=== PATIENT | male | born 1975 | race American Indian/Alaskan Native ===

== ENCOUNTER 2017-05-12 16:51 | Emergency (ER) | payer SELFPAY ==
[2017-05-12 17:58] LABS: Basophils % (Auto) 0.3 % (0.0-1.8); Eosinophils % (Auto) 0.3 % (0.0-4.3); Hematocrit 39.9 % (35.5-45.6); Hemoglobin 12.8 gm/dl (11.8-15.2); Mean Corpuscular HGB Conc 32 % (32-34); Mean Corpuscular Hemoglobin 28 pg (28-32); Mean Corpuscular Volume 87 fl (84-94); Platelet Count 230 K/mm3 (140-440); Red Blood Count 4.61 M/mm3 (3.65-5.03); Red Cell Distribution Width 14.1 % (13.2-15.2)
[2017-05-12 18:03] LABS: Calcium 8.9 mg/dL (8.4-10.2); Potassium 4.8 mmol/L (3.6-5.0)
[2017-05-12] MEDS ORDERED: NACL 0.9% 1000 ML 1,000 ML IV ONE ×3 (18:54→22:24)
[2017-05-12 20:14] LABS: ISTAT Base Excess -8; ISTAT DEVICE 0; ISTAT HCO3 17.3; ISTAT PCO2 31.5 (35-45); ISTAT PH 7.348 (7.35-7.45); ISTAT PO2 76 (80-105); ISTAT SO2 95; ISTAT TCO2 18
[2017-05-12 20:32] LABS: Bilirubin,Urine NEG (Negative); Blood,Urine SM (Negative); Ketones,Urine 20 mg/dL (Negative); Leukocyte Esterase,Urine NEG (Negative); Mucus,Urine FEW /HPF; Nitrite,Urine NEG (Negative); Urobilinogen,Urine < 2.0 mg/dL (<2.0)
--- NOTE | 2017-05-12 21:49 | Emergency Department Report ---
- General Chief complaint: Hyperglycemia Stated complaint: FLU, HYPERGLYCEMIA Time Seen by Provider: 05/12/17 19:31 Source: patient Mode of arrival: Ambulatory Limitations: No Limitations - History of Present Illness Initial comments: Patient with progressive weakness with cough and congestion. Symptoms started Wednesday and Dx with flu today. Has DM type I. Can't keep anything down with vomiting. Glucose has been elevated. -: days(s) (5) Location: generalized Severity scale (0 -10): 6 Quality: aching Consistency: constant Improves with: none Worsens with: none Context: recent illness Associated Symptoms: denies other symptoms, fever/chills - Related Data Allergies Allergy/AdvReac Type Severity Reaction Status Date / Time No Known Allergies Allergy Unverified 05/12/17 17:24 ED Review of Systems ROS: Stated complaint: FLU, HYPERGLYCEMIA Other details as noted in HPI Constitutional: chills, fever Eyes: denies: eye pain, eye discharge, vision change ENT: denies: ear pain, throat pain Respiratory: cough. denies: shortness of breath, wheezing Cardiovascular: denies: chest pain, palpitations Endocrine: no symptoms reported Gastrointestinal: denies: abdominal pain, nausea, diarrhea Genitourinary: denies: urgency, dysuria Musculoskeletal: denies: back pain, joint swelling, arthralgia Skin: denies: rash, lesions Neurological: denies: headache, weakness, paresthesias Psychiatric: denies: anxiety, depression Hematological/Lymphatic: denies: easy bleeding, easy bruising ED Past Medical Hx - Past Medical History Previous Medical History?: Yes Hx Diabetes: Yes - Surgical History Past Surgical History?: No - Social History Smoking Status: Never Smoker Substance Use Type: None ED Physical Exam - General Limitations: No Limitations General appearance: alert, lethargic - Head Head exam: Present: atraumatic, normocephalic - Eye Eye exam: Present: normal appearance - ENT ENT exam: Present: mucous membranes moist - Neck Neck exam: Present: normal inspection - Respiratory Respiratory exam: Present: normal lung sounds bilaterally. Absent: respiratory distress - Cardiovascular Cardiovascular Exam: Present: normal rhythm, tachycardia. Absent: systolic murmur, diastolic murmur, rubs, gallop - GI/Abdominal GI/Abdominal exam: Present: soft, tenderness (mild generalized TTP. No peritonitis.), normal bowel sounds - Rectal Rectal exam: Present: deferred - Extremities Exam Extremities exam: Present: normal inspection - Back Exam Back exam: Present: normal inspection - Neurological Exam Neurological exam: Present: alert, oriented X3 - Psychiatric Psychiatric exam: Present: normal affect, normal mood - Skin Skin exam: Present: warm, dry, intact, normal color. Absent: rash ED Course Vital Signs 05/12/17 05/12/17 05/12/17 17:20 19:00 19:15 Temperature 99 F Pulse Rate 112 H 118 H 106 H Respiratory 26 H 19 35 H Rate Blood Pressure 140/85 134/80 138/75 O2 Sat by Pulse 98 98 95 Oximetry 05/12/17 05/12/17 05/12/17 19:30 19:45 20:00 Temperature Pulse Rate 106 H 112 H 106 H Respiratory 34 H 17 38 H Rate Blood Pressure 158/81 158/81 137/77 O2 Sat by Pulse 96 96 96 Oximetry 05/12/17 05/12/17 05/12/17 20:15 20:30 20:45 Temperature Pulse Rate 111 H 106 H 103 H Respiratory 23 22 34 H Rate Blood Pressure 137/77 143/75 143/75 O2 Sat by Pulse 98 98 96 Oximetry 05/12/17 21:00 Temperature Pulse Rate 107 H Respiratory 36 H Rate Blood Pressure 145/76 O2 Sat by Pulse 96 Oximetry ED Medical Decision Making - Lab Data Result diagrams: 05/12/17 17:31 05/12/17 17:31 Patient with normal lactic acid. Anion gap is 27. Ketones in urine. Glucose elevated. Renal function decreased. - EKG Data -: EKG Interpreted by Me - Medical Decision Making Patient with hyperglycemia and intractable vomiting with the flu A. Will admit for hydration, DM control and stabilization from the flu. D/W hospitalist. Critical care attestation.: If time is entered above; I have spent that time in minutes in the direct care of this critically ill patient, excluding procedure time. ED Disposition Clinical Impression: Influenza A, Hyperglycemia due to type 1 diabetes mellitus Intractable vomiting Qualifiers: Vomiting type: unspecified Nausea presence: with nausea Qualified Code(s): R11.2 - Nausea with vomiting, unspecified Disposition: OP ADMIT IP TO THIS HOSP Is pt being admited?: Yes Does the pt Need Aspirin: No Condition: Stable Instructions: Hyperosmolar Hyperglycemic State (ED) Time of Disposition: 21:51
[2017-05-12] MEDS ORDERED: ZOFRAN IV ONE (22:27)
[2017-05-12 23:00] VITALS: BP 116/55
[2017-05-12] MEDS ORDERED: TAMIFLU PO SCH (23:00)
[2017-05-12 23:27] LABS: Calcium 8.1 mg/dL (8.4-10.2); Chloride 94.9 mmol/L (98-107); Potassium 4.2 mmol/L (3.6-5.0)
--- NOTE | 2017-05-13 02:51 | History and Physical Report ---
History of Present Illness Chief complaint: High blood sugar History of present illness: 41 YO Male with DM presents to ED for evaluation. Pt states that he has been feeling weak. Pt seen and evaluated in ED and found to have elevated serum glucose. Pt treated with supportive care with normalization of serum glucose. Pt medically optimized and back to usual state of health. Pt discharged home and instructed to f/u pcp 1wk. Past History Past Medical History: diabetes Past Surgical History: No surgical history, Other (reviewed) Social history: single Family history: diabetes, hypertension Medications and Allergies Allergies Allergy/AdvReac Type Severity Reaction Status Date / Time No Known Allergies Allergy Unverified 05/12/17 17:24 Active Meds: Active Medications Oseltamivir Phosphate (Tamiflu) 75 mg PO BID CAROLIN Stop: 05/17/17 10:01 Last Admin: 05/12/17 23:35 Dose: 75 mg Review of Systems Constitutional: no weight loss, no weight gain Ears, nose, mouth and throat: no ear pain, no ear discharge, no tinnitis, no decreased hearing Cardiovascular: no orthopnea, no palpitations, no rapid/irregular heart beat, no edema Respiratory: no cough, no cough with sputum, no excessive sputum, no hemoptysis Gastrointestinal: no abdominal pain, no constipation, no change in bowel habits , no hematemesis Genitourinary Male: no flank pain, no discharge, no urinary frequency, no urinary hesitancy Rectal: no pain, no incontinence, no bleeding Musculoskeletal: no neck stiffness, no neck pain, no shooting arm pain, no arm numbness/tingling, no low back pain Integumentary: no rash, no pruritis, no redness, no sores Neurological: no paralysis, no weakness, no parathesias, no numbness, no tingling Psychiatric: no anxiety, no memory loss, no change in sleep habits, no sleep disturbances Endocrine: no cold intolerance, no heat intolerance, no polyphagia, no excessive sweating, no flushing Hematologic/Lymphatic: no easy bruising, no easy bleeding Allergic/Immunologic: no urticaria, no allergic rhinitis, no wheezing Exam - Constitutional Vitals: Temp Pulse Resp BP Pulse Ox 99 F 112 H 17 116/55 95 05/12/17 17:20 05/12/17 22:45 05/12/17 22:45 05/12/17 22:45 05/12/17 22:45 General appearance: Present: no acute distress, well-nourished - EENT Eyes: Present: PERRL ENT: hearing intact, clear oral mucosa - Neck Neck: Present: supple, normal ROM - Respiratory Respiratory effort: normal Respiratory: bilateral: CTA - Cardiovascular Heart Sounds: Present: S1 & S2. Absent: rub, click - Extremities Extremities: pulses symmetrical, No edema Peripheral Pulses: within normal limits - Abdominal General gastrointestinal: Present: soft, non-tender, non-distended, normal bowel sounds Male genitourinary: Present: normal - Integumentary Integumentary: Present: clear, warm, dry - Musculoskeletal Musculoskeletal: gait normal, strength equal bilaterally - Psychiatric Psychiatric: appropriate mood/affect, intact judgment & insight - Neurologic Neurologic: CNII-XII intact, moves all extremities Results - Labs CBC & Chem 7: 05/12/17 17:31 05/12/17 22:57 Labs: Abnormal lab results 05/12/17 05/12/17 05/12/17 Range/Units 17:30 17:31 17:31 Lymph % (Auto) 3.4 L (13.4-35.0) % [place] % (Auto) 9.6 H (0.0-7.3) % Lymph # 0.3 L (1.2-5.4) K/mm3 Seg Neutrophils % 86.4 H (40.0-70.0) % POC ABG pH (7.35-7.45) POC ABG pCO2 (35-45) POC ABG pO2 (80-105) Sodium 130 L (137-145) mmol/L Chloride 88.0 L (98-107) mmol/L Carbon Dioxide 20 L (22-30) mmol/L BUN 26 H (9-20) mg/dL Creatinine 2.1 H (0.8-1.5) mg/dL Glucose 431 H (75-100) mg/dL POC Glucose 421 H (70-105) Calcium (8.4-10.2) mg/dL 05/12/17 05/12/17 05/12/17 Range/Units 20:12 20:15 21:15 Lymph % (Auto) (13.4-35.0) % [place] % (Auto) (0.0-7.3) % Lymph # (1.2-5.4) K/mm3 Seg Neutrophils % (40.0-70.0) % POC ABG pH 7.348 L (7.35-7.45) POC ABG pCO2 31.5 L (35-45) POC ABG pO2 76 L (80-105) Sodium (137-145) mmol/L Chloride (98-107) mmol/L Carbon Dioxide (22-30) mmol/L BUN (9-20) mg/dL Creatinine (0.8-1.5) mg/dL Glucose (75-100) mg/dL POC Glucose 345 H 442 H (70-105) Calcium (8.4-10.2) mg/dL 05/12/17 05/12/17 05/13/17 Range/Units 22:16 22:57 01:15 Lymph % (Auto) (13.4-35.0) % [place] % (Auto) (0.0-7.3) % Lymph # (1.2-5.4) K/mm3 Seg Neutrophils % (40.0-70.0) % POC ABG pH (7.35-7.45) POC ABG pCO2 (35-45) POC ABG pO2 (80-105) Sodium 134 L (137-145) mmol/L Chloride 94.9 L (98-107) mmol/L Carbon Dioxide 20 L (22-30) mmol/L BUN 27 H (9-20) mg/dL Creatinine 2.1 H (0.8-1.5) mg/dL Glucose 325 H (75-100) mg/dL POC Glucose 430 H 329 H (70-105) Calcium 8.1 L (8.4-10.2) mg/dL Assessment and Plan - Patient Problems (1) Hyperglycemia Status: Acute Plan to address problem: Pt treated with insulin therapy, IVF resuscitation. Pt discharged home and instructed to f/u pcp 1wk with glucose log.
== END 2017-05-13 04:32 | disposition admitted as inpatient to this hospital (09) ==
LOC: ED 16:51
DX: J09.X2 Influenza due to identified novel influenza A virus with other respiratory manifestations (principal); E10.65 Type 1 diabetes mellitus with hyperglycemia; R11.2 Nausea with vomiting, unspecified
CPT/HCPCS: 36415; 80048; 81001; 82140; 82803; 82805; 82962; 85025; 96361; 96372; 96374; 96375; 99284; J2405; J7030; J1815